=== PATIENT | female | born 1955 | race Caucasian/White ===

== ENCOUNTER 2023-01-20 13:23 | Emergency (ER) | payer MEDICARE, BC ==
[~2023-01-20] VITALS: Ht 170.2 cm; Wt 107.0 kg
[~2023-01-20 13:23] MED LIST: ACYC400T PO; DABI150C PO; GABA-532 PO; ISOS30TA84 PO; METO50TA17 PO; MULT-381; NITR0.4T51 SL; NORT10CA81 PO; PENT400T17 PO; POTA10CA45 PO; PRAV40TA3 PO
[2023-01-20 13:40] VITALS: BP 143/75
[2023-01-20] MEDS ORDERED: ketorolac trometh. 30mg/ml inj. IM ONE (14:49)
== END 2023-01-20 15:40 | disposition home or self-care (01) ==
LOC: ER 13:24
DX: M13.852 Other specified arthritis, left hip (principal); M19.90 Unspecified osteoarthritis, unspecified site; I51.9 Heart disease, unspecified; Z88.8 Allergy status to other drugs, medicaments and biological substances; Z88.5 Allergy status to narcotic agent; Z88.1 Allergy status to other antibiotic agents; Z79.899 Other long term (current) drug therapy; Z88.6 Allergy status to analgesic agent
CPT/HCPCS: 72100; 73502; 96372; 99284; J1885